=== PATIENT | female | born 1955 | race Two or more races ===

== ENCOUNTER 2018-03-18 14:39 | Emergency (ER) | payer OTHER ==
[2018-03-19 07:47] LABS: NEGATIVE OBC STREP NEG
[2018-03-19 07:48] LABS: POSITIVE OBC STREP POS
== END 2018-03-18 15:16 | disposition home or self-care (01) ==
LOC: ER 14:39
DX: J20.9 Acute bronchitis, unspecified (principal); J06.9 Acute upper respiratory infection, unspecified; K02.9 Dental caries, unspecified; E03.9 Hypothyroidism, unspecified; K21.9 Gastro-esophageal reflux disease without esophagitis; F03.90 Unspecified dementia, unspecified severity, without behavioral disturbance, psychotic disturbance, mood disturbance, and anxiety; Z88.8 Allergy status to other drugs, medicaments and biological substances
CPT/HCPCS: 87070; 87880; 99283

== ENCOUNTER 2018-05-21 18:53 | Emergency (ER) | payer OTHER ==
[~2018-05-21] VITALS: Ht 167.6 cm; Wt 75.4 kg
[~2018-05-21 18:53] MED LIST: AMOX875T PO; AZIT250T PO; BENZ100C PO; CETI10TA22 PO; FLUT9.9S NS; PRED50TA PO; VENTOLIN HFA18 GM INH
[2018-05-21] MEDS ORDERED: SODIUM PHOSPHATES 19/7GM 133 ML ENEMA. PR ONE (20:45)
--- NOTE | 2018-05-21 21:33 | PHYS DOC ---
Past Medical History Past Medical History: Dementia, GERD, Hypothyroid, Other Additional Past Medical Histor: prediabetes Past Surgical History: No Surgical History Alcohol Use: None Drug Use: None Adult General Chief Complaint Chief Complaint: CONTISPATION HPI HPI Patient is a 63 year old female who presents with constipation. Patient endorses that she has chronic history of constipation. According to her son who is in the room the patient has into multiple ERs for this problem. This episode , she states that she has not had a bowel movement for 3 weeks. She has been passing small pebble-like pieces of stool. No fever or chills. No abdominal pain. No urinary symptoms. Denies additional complaints. Review of Systems Review of Systems Constitutional: Denies fever or chills Eyes: Denies change in visual acuity HENT: Denies nasal congestion Respiratory: Denies cough or shortness of breath Cardiovascular: No additional information not addressed in HPI GI: Denies abdominal pain : Denies dysuria or hematuria Musculoskeletal: Denies back pain Integument: Denies rash Neurologic: Denies headache Endocrine: Denies polyuria All other systems were reviewed and found to be within normal limits, except as documented in this note. Current Medications Current Medications Current Medications Medications (Trade) Dose Ordered Sig/Blanquita Start Time Stop Time Status Last Admin Dose Admin Sodium Monofluorophosphate (Fleet Adult) 133 ml 1X ONCE 05/21/18 20:45 05/21/18 20:46 DC Allergies Allergies Allergies Coded Allergies Type Severity Reaction Last Updated Verified omeprazole Adverse Reaction Intermediate vomiting 03/18/18 Yes Physical Exam Physical Exam Constitutional: Well developed, well nourished, no acute distress, non-toxic appearance HENT: Normocephalic, atraumatic, bilateral external ears normal, oropharynx moist, no oral exudates Eyes: PERRLA, EOMI, conjunctiva normal Neck: Normal range of motion Cardiovascular:Heart rate regular rhythm, no murmur Lungs & Thorax: Bilateral breath sounds clear Abdomen: Bowel sounds normal, soft, nontender Skin: Warm, dry, no erythema Back: No tenderness Extremities: No tenderness, no cyanosis Neurologic: Alert and oriented X 3 Psychologic: Affect normal Current Patient Data Vital Signs Vital Signs Date Time Temp Pulse Resp B/P (MAP) Pulse Ox O2 Delivery O2 Flow Rate FiO2 05/21/18 21:45 80 148/67 (94) 97 05/21/18 21:00 Room Air 05/21/18 20:21 97.7 18 97.7 Lab Values Laboratory Tests Test 05/21/18 22:26 Urine Collection Type Unknown Urine Color Yellow Urine Clarity Clear Urine pH 5.0 Urine Specific [place] 1.010 Urine Protein Negative mg/dL (NEG-TRACE) Urine Glucose (UA) Negative mg/dL (NEG) Urine Ketones (Stick) Negative mg/dL (NEG) Urine Blood Negative (NEG) Urine Nitrite Negative (NEG) Urine Bilirubin Negative (NEG) Urine Urobilinogen Dipstick 0.2 mg/dL (0.2 mg/dL) Urine Leukocyte Esterase Negative (NEG) Urine RBC 0 /HPF (0-2) Urine WBC 1-4 /HPF (0-4) Urine Squamous Epithelial Cells Few /LPF Urine Amorphous Sediment Present /HPF Urine Bacteria 0 /HPF (0-FEW) Urine Mucus Mod /LPF EKG EKG [] Radiology/Procedures Radiology/Procedures [] Course & Med Decision Making Course & Med Decision Making Pertinent Labs and Imaging studies reviewed. (See chart for details) Patient is seen and examined. Exam of abdomen is completely benign with no tenderness, distension. Will attempt MOM enema. 21:30: No results with MOM enema. Nurse attempted disimpaction but no stool palpated in vault. KUB ordered. Will also check UA. Patient was evaluated for constipation in the ER. She had an enema but no stool was produced. KUB was completed and no significant amount of stool was seen in the colon or rectum. There was a positive bowel gas but there was no obstructive pattern. The patient's abdominal exam was completely benign. She is discharged to home with Colace and MiraLAX as a bowel regimen. Patient is advised to follow-up with her primary care doctor or return to the ER for any new or worsening symptoms. Dragon Disclaimer Dragon Disclaimer This electronic medical record was generated, in whole or in part, using a voice recognition dictation system. Departure Departure Referrals: UNKNOWN PCP NAME (PCP) Scripts Polyethylene Glycol 3350 (MIRALAX) 17 Gm Powd.pack 1 PACKET PO DAILY, #30 PACKET 3 Refills Prov: JARRED WORTHY DO 05/21/18 Docusate Sodium (DOCUSATE SODIUM) 100 Mg Capsule 1 CAP PO BID, #60 CAP Prov: JARRED WORTHY DO 05/21/18 JARRED WORTHY DO May 21, 2018 21:33
[2018-05-21 22:33] LABS: BILIRUBIN,URINE NEGATIVE (NEG); CLARITY,URINE CLEAR; COLOR,URINE YELLOW; NITRITE,URINE NEGATIVE (NEG); PROTEIN,URINE NEGATIVE (NEG-TRACE); UROBILINOGEN,URINE 0.2 mg/dL (0.2 mg/dL)
[2018-05-21 22:50] LABS: AMORPHOUS SEDIMENT,UR PRESENT /HPF; BACTERIA,URINE 0 /HPF (0-FEW); RBC,URINE 0 /HPF (0-2); SQUAMOUS EPITHELIAL CELL,UR FEW /LPF
[2018-05-21] MEDS ORDERED: DOCU100C28 PO (22:54)
[2018-05-21] MEDS ORDERED: POLY17PO29 PO (22:54)
[2018-05-21 23:17] VITALS: BP 192/82
--- NOTE | 2018-05-22 08:53 | RAD ---
EXAM: ABDOMEN 1 VIEW History: Abdominal pain, constipation COMPARISON: None available TECHNIQUE: A single AP abdominal radiograph Findings/ impression: Paucity of gas in the abdomen limits evaluation of the small bowel. Feces and gas noted in the ascending colon. The abdomen flanks appears somewhat bulged in appearance probably due to fat in the flanks or fluid. Recommend CT for further evaluation ER Physician was informed at time of dictation Electronically signed by: Ramón Batista MD (05/22/2018 8:49 AM) [facility]
== END 2018-05-21 23:50 | disposition home or self-care (01) ==
LOC: ER 18:53
DX: K59.00 Constipation, unspecified (principal); K21.9 Gastro-esophageal reflux disease without esophagitis; E03.9 Hypothyroidism, unspecified; F03.90 Unspecified dementia, unspecified severity, without behavioral disturbance, psychotic disturbance, mood disturbance, and anxiety; Z88.8 Allergy status to other drugs, medicaments and biological substances
CPT/HCPCS: 74018; 81001; 99285-25

== ENCOUNTER 2018-05-22 12:25 | Emergency (ER) | payer OTHER ==
[~2018-05-22] VITALS: Ht 152.4 cm; Wt 75.3 kg
[~2018-05-22 12:25] MED LIST changes: +DOCU100C28 PO; +POLY17PO29 PO
[2018-05-22] MEDS ORDERED: IV NORMAL SALINE 1000ML BAG 1,000 ML IV ONE (12:45)
--- NOTE | 2018-05-22 13:37 | PHYS DOC ---
Past Medical History Past Medical History: Constipation, Dementia, GERD, Hypothyroid, Other Additional Past Medical Histor: prediabetes,STOMACH PROBLEMS Past Surgical History: No Surgical History Alcohol Use: None Drug Use: None Adult General Chief Complaint Chief Complaint: ABDOMINAL PAIN HPI HPI Patient is a 63 year old female who presents with callback per radiology for CT scan of the abdomen and pelvis. Patient has a history of chronic intermittent constipation and her son, who translates for her, states that she has had an upper GI workup and was diagnosed with gastritis. He is not sure she ever had a lower GI workup but states she does get constipated often. Patient was just discharged earlier today had a KUB which showed constipation. Apparently there was a manual disimpaction was attempted in the emergency department without any real results. Radiology called at 8:30 this morning and request the patient be called to return to the emergency department for a CT: Findings/ impression: "Paucity of gas in the abdomen limits evaluation of the small bowel. Feces and gas noted in the ascending colon. The abdomen flanks appears somewhat bulged in appearance probably due to fat in the flanks or fluid. Recommend CT for further evaluation ER Physician was informed at time of dictation Electronically signed by: Ramón Batista MD (05/22/2018 8:49 AM) [facility]" Review of Systems Review of Systems Constitutional: Denies fever or chills [] Eyes: Denies change in visual acuity, redness, or eye pain [] HENT: Denies nasal congestion or sore throat [] Respiratory: Denies cough or shortness of breath [] Cardiovascular: No additional information not addressed in HPI [] GI: Denies abdominal pain, nausea, vomiting, bloody stools or diarrhea [] : Denies dysuria or hematuria [] Musculoskeletal: Denies back pain or joint pain [] Integument: Denies rash or skin lesions [] Neurologic: Denies headache, focal weakness or sensory changes [] Endocrine: Denies polyuria or polydipsia [] All other systems were reviewed and found to be within normal limits, except as documented in this note. Current Medications Current Medications Current Medications Medications (Trade) Dose Ordered Sig/Blanquita Start Time Stop Time Status Last Admin Dose Admin Info (CONTRAST GIVEN -- Rx MONITORING) 1 each PRN DAILY PRN 05/22/18 14:15 05/24/18 14:14 Iohexol (Omnipaque 300 Mg/ml) 75 ml 1X ONCE 05/22/18 14:15 05/22/18 14:16 DC 05/22/18 14:16 75 ML Sodium Chloride 1,000 ml @ 125 mls/hr 1X ONCE 05/22/18 12:45 05/22/18 20:44 05/22/18 13:31 125 MLS/HR Allergies Allergies Allergies Coded Allergies Type Severity Reaction Last Updated Verified omeprazole Adverse Reaction Intermediate vomiting 03/18/18 Yes Physical Exam Physical Exam Constitutional: Well developed, well nourished, no acute distress, non-toxic appearance. [] HENT: Normocephalic, atraumatic, bilateral external ears normal, oropharynx moist, no oral exudates, nose normal. [] Eyes: PERRLA, EOMI, conjunctiva normal, no discharge. [] Neck: Normal range of motion, no tenderness, supple, no stridor. [] Cardiovascular:Heart rate regular rhythm, no murmur [] Lungs & Thorax: Bilateral breath sounds clear to auscultation [] Abdomen: Bowel sounds normal, soft, no tenderness, no masses, no pulsatile masses. [] Skin: Warm, dry, no erythema, no rash. [] Back: No tenderness, no CVA tenderness. [] Extremities: No tenderness, no cyanosis, no clubbing, ROM intact, no edema. [] Neurologic: Alert and oriented X 3, normal motor function, normal sensory function, no focal deficits noted. [] Psychologic: Affect normal, judgement normal, mood normal. [] Current Patient Data Vital Signs Vital Signs Date Time Temp Pulse Resp B/P (MAP) Pulse Ox O2 Delivery O2 Flow Rate FiO2 05/22/18 15:08 84 15 150/77 (101) 98 Room Air 05/22/18 12:44 98.1 98.1 Lab Values Laboratory Tests Test 05/22/18 13:04 White Blood Count 6.5 x10^3/uL (4.0-11.0) Red Blood Count 4.58 x10^6/uL (3.50-5.40) Hemoglobin 14.2 g/dL (12.0-15.5) Hematocrit 42.0 % (36.0-47.0) Mean Corpuscular Volume 92 fL (79-100) Mean Corpuscular Hemoglobin 31 pg (25-35) Mean Corpuscular Hemoglobin Concent 34 g/dL (31-37) Red Cell Distribution Width 14.1 % (11.5-14.5) Platelet Count 234 x10^3/uL (140-400) Neutrophils (%) (Auto) 54 % (31-73) Lymphocytes (%) (Auto) 30 % (24-48) Monocytes (%) (Auto) 6 % (0-9) Eosinophils (%) (Auto) 9 % (0-3) H Basophils (%) (Auto) 1 % (0-3) Neutrophils # (Auto) 3.5 x10^3uL (1.8-7.7) Lymphocytes # (Auto) 1.9 x10^3/uL (1.0-4.8) Monocytes # (Auto) 0.4 x10^3/uL (0.0-1.1) Eosinophils # (Auto) 0.6 x10^3/uL (0.0-0.7) Basophils # (Auto) 0.1 x10^3/uL (0.0-0.2) Sodium Level 146 mmol/L (136-145) H Potassium Level 3.5 mmol/L (3.5-5.1) Chloride Level 109 mmol/L (98-107) H Carbon Dioxide Level 25 mmol/L (21-32) Anion Gap 12 (6-14) Blood Urea Nitrogen 3 mg/dL (7-20) L Creatinine 0.8 mg/dL (0.6-1.0) Estimated GFR (Cockcroft-Gault) 72.0 BUN/Creatinine Ratio 4 (6-20) L Glucose Level 133 mg/dL (70-99) H Calcium Level 9.3 mg/dL (8.5-10.1) Total Bilirubin 1.1 mg/dL (0.2-1.0) H Aspartate Amino Transferase (AST) 35 U/L (15-37) Alanine Aminotransferase (ALT) 42 U/L (14-59) Alkaline Phosphatase 93 U/L (46-116) Total Protein 7.3 g/dL (6.4-8.2) Albumin 3.5 g/dL (3.4-5.0) Albumin/Globulin Ratio 0.9 (1.0-1.7) L Laboratory Tests 05/22/18 13:04 Laboratory Tests 05/22/18 13:04 EKG EKG [] Radiology/Procedures Radiology/Procedures [facility] [address] [place] [address] IMAGING REPORT Signed PATIENT: ASHLEY DUGGAN ACCOUNT: [id number] : 1955 LOCATION: ER AGE: 63 SEX: F EXAM STATUS: REG ER ORD. PHYSICIAN: MIKEY LEES MD REASON: abdominal pain PROCEDURE: CT ABD PELV W/ IV CONTRST ONLY Examination: CT of the abdomen pelvis with IV contrast HISTORY: History of abdominal pain COMPARISON: None available TECHNIQUE: Axial CT images of the abdomen pelvis were performed with IV contrast. Coronal and sagittal reformats are performed. Exposure: One or more of the following individualized dose reduction techniques were utilized for this examination: 1. Automated exposure control 2. Adjustment of the mA and/or kV according to patient size 3. Use of iterative reconstruction technique FINDINGS: Minimal bibasilar lung airspace opacities likely atelectasis. No evidence of free air identified in the abdomen. There is mild decreased attenuation noted in the liver likely hepatic steatosis. The gallbladder is mildly distended. The visualized spleen, adrenals grossly appears unremarkable. The stomach is mildly distended. The visualized pancreas grossly appears unremarkable. The small bowel is nondilated. The appendix is normal. Feces and gas noted in the colon. Urinary bladder is mildly distended. The bilateral kidneys enhance symmetrically. Mild aortic atherosclerosis. No evidence of lytic bony destructive lesion. IMPRESSION: 1. No acute intra-abdominal findings. 2. Mild hepatic steatosis. Electronically signed by: Ramón Batista MD (05/22/2018 2:39 PM) [facility] DICTATED and SIGNED BY: RAMÓN BATISTA MD DATE: 05/22/18 4728 [] Course & Med Decision Making Course & Med Decision Making Pertinent Labs and Imaging studies reviewed. (See chart for details) []Patient currently has no acute complaints at this time is in no distress Dragon Disclaimer Dragon Disclaimer This electronic medical record was generated, in whole or in part, using a voice recognition dictation system. Departure Departure Impression: Primary Impression: Abdominal pain Disposition: 01 HOME, SELF-CARE Condition: STABLE Referrals: UNKNOWN PCP NAME (PCP) Additional Instructions: Follow-up with her primary care on Thursday for further evaluation and management possible GI consult for a lower GI series MIKEY LEES MD May 22, 2018 13:37
[2018-05-22 14:10] LABS: CALCIUM 9.3 mg/dL (8.5-10.1); CREATININE 0.8 mg/dL (0.6-1.0); POTASSIUM 3.5 mmol/L (3.5-5.1)
[2018-05-22] MEDS ORDERED: CONTRAST GIVEN. MC PRN (14:15)
[2018-05-22] MEDS ORDERED: IOHEXOL 300 MG/ML 100ML VIAL. IV ONE (14:15)
[2018-05-22 14:16] LABS: ALBUMIN 3.5 g/dL (3.4-5.0); ALBUMIN/GLOBULIN RATIO 0.9 (1.0-1.7); TOTAL BILIRUBIN 1.1 mg/dL (0.2-1.0); TOTAL PROTEIN 7.3 g/dL (6.4-8.2)
--- NOTE | 2018-05-22 14:43 | RAD ---
Examination: CT of the abdomen pelvis with IV contrast HISTORY: History of abdominal pain COMPARISON: None available TECHNIQUE: Axial CT images of the abdomen pelvis were performed with IV contrast. Coronal and sagittal reformats are performed. Exposure: One or more of the following individualized dose reduction techniques were utilized for this examination: 1. Automated exposure control 2. Adjustment of the mA and/or kV according to patient size 3. Use of iterative reconstruction technique FINDINGS: Minimal bibasilar lung airspace opacities likely atelectasis. No evidence of free air identified in the abdomen. There is mild decreased attenuation noted in the liver likely hepatic steatosis. The gallbladder is mildly distended. The visualized spleen, adrenals grossly appears unremarkable. The stomach is mildly distended. The visualized pancreas grossly appears unremarkable. The small bowel is nondilated. The appendix is normal. Feces and gas noted in the colon. Urinary bladder is mildly distended. The bilateral kidneys enhance symmetrically. Mild aortic atherosclerosis. No evidence of lytic bony destructive lesion. IMPRESSION: 1. No acute intra-abdominal findings. 2. Mild hepatic steatosis. Electronically signed by: Ramón Batista MD (05/22/2018 2:39 PM) [facility]
[2018-05-22 15:12] LABS: BASO # 0.1 x10^3/uL (0.0-0.2); BASO % 1 % (0-3); EOS # 0.6 x10^3/uL (0.0-0.7); EOS % 9 % (0-3); HEMOGLOBIN 14.2 g/dL (12.0-15.5); LYMPH # 1.9 x10^3/uL (1.0-4.8); LYMPH % 30 % (24-48); MEAN CORPUSCULAR HEMOGLOBIN 31 pg (25-35); MEAN CORPUSCULAR HGB CONC 34 g/dL (31-37); MEAN CORPUSCULAR VOLUME 92 fL (79-100); MONO # 0.4 x10^3/uL (0.0-1.1); MONO % 6 % (0-9); NEUT # 3.5 x10^3uL (1.8-7.7); NEUT % 54 % (31-73); PLATELET COUNT 234 x10^3/uL (140-400); RED BLOOD COUNT 4.58 x10^6/uL (3.50-5.40); RED CELL DISTRIBUTION WIDTH 14.1 % (11.5-14.5); WHITE BLOOD COUNT 6.5 x10^3/uL (4.0-11.0)
[2018-05-22 15:56] VITALS: BP 146/70
== END 2018-05-22 16:29 | disposition home or self-care (01) ==
LOC: ER 12:25
DX: K59.00 Constipation, unspecified (principal); K29.70 Gastritis, unspecified, without bleeding; K76.0 Fatty (change of) liver, not elsewhere classified; K21.9 Gastro-esophageal reflux disease without esophagitis; E03.9 Hypothyroidism, unspecified; F03.90 Unspecified dementia, unspecified severity, without behavioral disturbance, psychotic disturbance, mood disturbance, and anxiety; Z88.8 Allergy status to other drugs, medicaments and biological substances
CPT/HCPCS: 36415; 74177; 80053; 85025; 96360; 96361; 99285; J7030; Q9967

== ENCOUNTER → 2018-06-10 | Outpatient (CLI) | payer MEDICAID, OTHER ==
[2018-05-22 15:56] VITALS: BP 146/70
--- NOTE | 2018-06-10 12:54 | RAD ---
DATE: 06/10/2018 EXAM: DIGITAL SCREEN BILAT W/CAD HISTORY: Routine screening COMPARISON: Baseline study This study was interpreted with the benefit of Computerized Aided Detection (CAD). Breast Density: HETERO The breast parenchyma is heterogenously dense, which could reduce sensitivity of mammography. Breast parenchyma level C. FINDINGS: A small benign-appearing lymph node type density is projected over the axillary tail region of the right breast. No suspicious breast densities are seen. There are scattered benign type calcifications. A cluster of 5 microcalcifications is noted just medial and inferior to the midline of the left breast. These are rounded and fairly smooth and have a benign appearance. IMPRESSION: Probably benign left breast microcalcifications. In the absence of prior mammograms to establish stability, mammographic surveillance consisting of follow-up left mammograms in 6 months and bilateral mammography at one year is suggested. BI-RADS CATEGORY: 3 PROBABLY BENIGN FINDING(S)-SHORT INTERVAL FOLLOW-UP SUGGESTED RECOMMENDED FOLLOW-UP: 6M 6 MONTH FOLLOW-UP PQRS compliance statement: Patient information was entered into a reminder system with a target due date for the next mammogram. Mammography is a sensitive method for finding small breast cancers, but it does not detect them all and is not a substitute for careful clinical examination. A negative mammogram does not negate a clinically suspicious finding and should not result in delay in biopsying a clinically suspicious abnormality. "Our facility is accredited by the [employer] Mammography Program."
== END | disposition home or self-care (01) ==
LOC: MAMMO 09:49
DX: Z12.31 Encounter for screening mammogram for malignant neoplasm of breast (principal)
CPT/HCPCS: 77067

== ENCOUNTER 2018-11-05 21:00 | Emergency (ER) | payer OTHER ==
[~2018-11-05] VITALS: Ht 157.5 cm; Wt 74.8 kg
[2018-11-05 21:27] VITALS: BP 146/78
--- NOTE | 2018-11-05 22:35 | RAD ---
EXAM: CT Head without IV contrast CLINICAL HISTORY: LEFT EAR ACHE, PAIN, R/O LEFT MASTOIDITIS COMPARISON: None. TECHNIQUE: Routine CT of the head without contrast. Soft tissues and bone windows were reviewed. PQRS compliance statement - One or more of the following individualized dose reduction techniques were utilized for this study: 1. Automated exposure control 2. Adjustment of the mA and/or kV according to patient size 3. Use of iterative reconstruction technique FINDINGS: There is no evidence of hemorrhage, mass or extra-axial fluid collection. Lockett-white differentiation is maintained with no evidence of edema. There is no mass effect or shift of the intracranial structures. The ventricles, basilar cisterns and cortical sulci are normal in size and configuration for the patients stated age. The cerebellum and brainstem are unremarkable. The calvarium demonstrates no evidence of fracture or focal lesion. Mastoid air cells are clear. Diffuse opacification of the maxillary sinuses, ethmoid air cells and right frontal sinus as well as patchy opacification of the sphenoid sinuses likely sinusitis. The visualized portions of the orbits are normal. IMPRESSION: 1. No evidence for acute intracranial process. 2. Mastoid air cells are clear. 3. Diffuse opacification of the paranasal sinuses may be seen with sinusitis. Electronically signed by: Vijay Cagle MD (11/05/2018 10:32 PM) [facility]
[2018-11-05] MEDS ORDERED: AMOX1TAB61 PO (22:40)
--- NOTE | 2018-11-05 22:40 | PHYS DOC ---
Past Medical History Past Medical History: Constipation, Dementia, GERD, Hypothyroid, Other Additional Past Medical Histor: prediabetes,STOMACH PROBLEMS Past Surgical History: No Surgical History Alcohol Use: None Drug Use: None Adult General Chief Complaint Chief Complaint: EARACHE/EAR PAIN [facility] HPI Patient is a 63 year old male, accompanied by his son, who presents to the emergency room with complaints of left ear pain and cold symptoms for the last two days. patient reports nasal congestion, runny nose with clear drainage, and dry cough. He denies any nausea, vomiting, diarrhea, fever, vision changes, or sore throat. Currently he reports his pain is 8/10 on the pain scale, he took T ylenol for relief of the pain at home with no improvement. he denies any drainage, or bleeding from his left ear, patient reports that the pain is not inside of his ear it is just behind his ear. Review of Systems Review of Systems Constitutional: Denies fever or chills [] Eyes: Denies change in visual acuity, redness, or eye pain [] HENT: See HPI Respiratory: Denies shortness of breath [] Cardiovascular: No additional information not addressed in HPI [] GI: Denies abdominal pain, nausea, vomiting, or diarrhea [] Musculoskeletal: Denies back pain or joint pain [] Integument: Denies rash or skin lesions [] Neurologic: Denies headache, focal weakness or sensory changes [] Complete systems were reviewed and found to be within normal limits, except as documented in this note. Allergies Allergies Allergies Coded Allergies Type Severity Reaction Last Updated Verified omeprazole Adverse Reaction Intermediate vomiting 03/18/18 Yes Physical Exam Physical Exam Constitutional: Well developed, well nourished, no acute distress, non-toxic appearance. [] HENT: Normocephalic, atraumatic, bilateral external ears normal, bilateral TMs normal, oropharynx moist, cobblestone parents posterior pharynx, no oral exudates, nose normal; left mastoid process tenderness to palpation, no erythema, no swelling[] Eyes: conjunctiva normal, no discharge. [] Neck: Normal range of motion, no tenderness, supple, no stridor. [] Cardiovascular:Heart rate regular rhythm, Lungs & Thorax: Bilateral breath sounds clear to auscultation [] Skin: Warm, dry, no erythema, no rash. [] Extremities:No cyanosis, ROM intact, no edema, no deformities. Neurologic: Alert and oriented X 3, no focal deficits noted. [] Psychologic: Affect normal, judgement normal, mood normal. [] Current Patient Data Vital Signs EKG EKG [] Radiology/Procedures Radiology/Procedures PROCEDURE: CT HEAD WO CONTRAST EXAM: CT Head without IV contrast CLINICAL HISTORY: LEFT EAR ACHE, PAIN, R/O LEFT MASTOIDITIS COMPARISON: None. TECHNIQUE: Routine CT of the head without contrast. Soft tissues and bone windows were reviewed. PQRS compliance statement - One or more of the following individualized dose reduction techniques were utilized for this study: 1. Automated exposure control 2. Adjustment of the mA and/or kV according to patient size 3. Use of iterative reconstruction technique FINDINGS: There is no evidence of hemorrhage, mass or extra-axial fluid collection. Lockett-white differentiation is maintained with no evidence of edema. There is no mass effect or shift of the intracranial structures. The ventricles, basilar cisterns and cortical sulci are normal in size and configuration for the patients stated age. The cerebellum and brainstem are unremarkable. The calvarium demonstrates no evidence of fracture or focal lesion. Mastoid air cells are clear. Diffuse opacification of the maxillary sinuses, ethmoid air cells and right frontal sinus as well as patchy opacification of the sphenoid sinuses likely sinusitis. The visualized portions of the orbits are normal. IMPRESSION: 1. No evidence for acute intracranial process. 2. Mastoid air cells are clear. 3. Diffuse opacification of the paranasal sinuses may be seen with sinusitis.[] Course & Med Decision Making Course & Med Decision Making Pertinent Labs and Imaging studies reviewed. (See chart for details) [] Dragon Disclaimer Dragon Disclaimer This electronic medical record was generated, in whole or in part, using a voice recognition dictation system. Departure Departure Impression: Primary Impression: Acute sinusitis Disposition: 01 HOME, SELF-CARE Condition: STABLE Referrals: UNKNOWN PCP NAME (PCP) Patient Instructions: Sinusitis, [id number] Additional Instructions: Fill the prescription and take as directed. Tylenol or ibuprofen as needed for pain. Return to the ER if symptoms worsen. Scripts Amoxicillin/Potassium Clav (AUGMENTIN 875-125 TABLET) 1 Each Tablet 1 TAB PO BID, #14 TAB Prov: LAURYN MELTON [employer]ICE ECONOMIST 11/05/18 Problem Qualifiers Primary Impression: Acute sinusitis Sinusitis location: unspecified location Recurrence: not specified as recurrent Qualified Codes: J01.90 - Acute sinusitis, unspecified LAURYN MELTON PRICE ECONOMIST Nov 05, 2018 22:40
== END 2018-11-05 22:50 | disposition home or self-care (01) ==
LOC: ER 21:00
DX: J01.90 Acute sinusitis, unspecified (principal); K21.9 Gastro-esophageal reflux disease without esophagitis; E03.9 Hypothyroidism, unspecified; F03.90 Unspecified dementia, unspecified severity, without behavioral disturbance, psychotic disturbance, mood disturbance, and anxiety; Z88.8 Allergy status to other drugs, medicaments and biological substances
CPT/HCPCS: 70450; 99284-25

== ENCOUNTER 2019-05-19 11:12 | Emergency (ER) | payer OTHER ==
[~2019-05-19] VITALS: Ht 167.6 cm; Wt 74.8 kg
[~2019-05-19 11:12] MED LIST changes: +AMOX1TAB61 PO; +DICY20TA3 PO; +FAMO-63 PO; +SUCR1TAB35 PO
[2019-05-19] MEDS ORDERED: LIDO:MAALOX 1:1 20 ML SINGLE DOSE. SWSW ONE (11:45)
--- NOTE | 2019-05-19 12:17 | PHYS DOC ---
Past Medical History Past Medical History: Constipation, Dementia, GERD, Hypothyroid, Other Additional Past Medical Histor: prediabetes,STOMACH PROBLEMS Past Surgical History: Cholecystectomy Alcohol Use: None Drug Use: None Adult General Chief Complaint Chief Complaint: COUGH HPI HPI Patient is a 64 year old female with history of dementia, hypothyroidism, who presents to the ED today complaining of cough and a sore throat that began one week. Patient denies any fever. Denies any shortness of breath. Patient's son is interpreting for their pamunkey language Review of Systems Review of Systems Constitutional: Denies fever or chills [] Eyes: Denies change in visual acuity, redness, or eye pain [] HENT: Reports sore throat. Denies nasal congestion Respiratory: Reports cough. Shortness of breath [] Cardiovascular: No additional information not addressed in HPI [] GI: Denies abdominal pain, nausea, vomiting, bloody stools or diarrhea [] : Denies dysuria or hematuria [] Musculoskeletal: Denies back pain or joint pain [] Integument: Denies rash or skin lesions [] Neurologic: Denies headache, focal weakness or sensory changes [] All other systems were reviewed and found to be within normal limits, except as documented in this note. Current Medications Current Medications Current Medications Medications (Trade) Dose Ordered Sig/Blanquita Start Time Stop Time Status Last Admin Dose Admin Multi-Ingredient Mouthwash/Gargle (Gi Cocktail) 20 ml 1X ONCE 05/19/19 11:45 05/19/19 11:46 DC 05/19/19 12:25 20 ML Allergies Allergies Allergies Coded Allergies Type Severity Reaction Last Updated Verified omeprazole Adverse Reaction Intermediate vomiting 03/18/18 Yes Physical Exam Physical Exam Constitutional: Well developed, well nourished, no acute distress, non-toxic appearance. [] HENT: Normocephalic, atraumatic, bilateral external ears normal, oropharynx moist, no oral exudates, nose normal. [] Eyes: PERRLA, EOMI, conjunctiva normal, no discharge. [] Neck: Normal range of motion, no tenderness, supple, no stridor. [] Cardiovascular:Heart rate regular rhythm, no murmur [] Lungs & Thorax: Bilateral breath sounds clear to auscultation [] Abdomen: Bowel sounds normal, soft, no tenderness, no masses, no pulsatile masses. [] Skin: Warm, dry, no erythema, no rash. [] Back: No tenderness, no CVA tenderness. [] Extremities: No tenderness, no cyanosis, no clubbing, ROM intact, no edema. [] Neurologic: Alert and oriented X 3, normal motor function, normal sensory function, no focal deficits noted. [] Psychologic: Affect normal, judgement normal, mood normal. [] Current Patient Data Vital Signs Vital Signs Date Time Temp Pulse Resp B/P (MAP) Pulse Ox O2 Delivery O2 Flow Rate FiO2 05/19/19 11:52 97.8 76 16 136/64 (88) 94 Room Air 97.8 Lab Values Laboratory Tests Test 05/19/19 12:00 Group A Streptococcus Rapid Negative (NEGATIVE) EKG EKG [address] Marielle samuel rhythm HR 82 no STEMI[] Radiology/Procedures Radiology/Procedures []PROCEDURE: CHEST PA & LATERAL PA and lateral views of the chest. Comparison: 03/26/2019. Indication: Cough Findings: The heart size is at the upper limits of normal but stable. No pneumothorax or effusion. No air space or interstitial disease. The bony structures are intact. Impression: 1. No acute cardiopulmonary process. DICTATED and SIGNED BY: MARIANA ZHANG MD DATE: 05/19/19 1253 Course & Med Decision Making Course & Med Decision Making Pertinent Labs and Imaging studies reviewed. (See chart for details) This is a 64-year-old female patient presented to the ED today with cough and sore throat that began one week ago. Patient be treated for bronchitis, discharged to home, follow-up with primary care doctor in 1-2 weeks. Dragon Disclaimer Dragon Disclaimer This electronic medical record was generated, in whole or in part, using a voice recognition dictation system. Departure Departure Impression: Primary Impression: Acute bronchitis Additional Impression: Acute pharyngitis Disposition: 01 HOME, SELF-CARE Condition: STABLE Patient Instructions: Acute Bronchitis, Viral and Bacterial Pharyngitis Additional Instructions: You were evaluated in the emergency room for acute bronchitis and pharyngitis. Take the prescribed medications as ordered until completed. Follow-up with your doctor in one week. Scripts Doxycycline Monohydrate (DOXYCYCLINE MONOHYDRATE) 100 Mg Capsule 1 CAP PO BID, #14 CAP Prov: TRENTON WALTERS [employer] AID INSTRUCTOR 05/19/19 Benzonatate (TESSALON PERLE) 100 Mg Capsule 1 CAP PO TID, #30 CAP Prov: TRENTON WALTERS APRN 05/19/19 Albuterol Sulfate (VENTOLIN HFA INHALER) 18 Gm Hfa.aer.ad 2 PUFF INH Q4HRS for FOR ASTHMA, #1 INHALER 0 Refills Prov: TRENTON WALTERS TERESA 05/19/19 Prednisone (PREDNISONE) 50 Mg Tablet 1 TAB PO DAILY, #5 TAB Prov: TRENTON WALTERS APRN 05/19/19 Problem Qualifiers Primary Impression: Acute bronchitis Bronchitis organism: unspecified organism Qualified Codes: J20.9 - Acute bronchitis, unspecified Additional Impression: Acute pharyngitis Pharyngitis/tonsillitis etiology: unspecified etiology Qualified Codes: J02.9 - Acute pharyngitis, unspecified TRENTON WALTERS APRN May 19, 2019 12:17
--- NOTE | 2019-05-19 15:08 | RAD ---
PA and lateral views of the chest. Comparison: 03/26/2019. Indication: Cough Findings: The heart size is at the upper limits of normal but stable. No pneumothorax or effusion. No air space or interstitial disease. The bony structures are intact. Impression: 1. No acute cardiopulmonary process. MTDD
[2019-05-19] MEDS ORDERED: PRED50TA PO (15:47)
[2019-05-19] MEDS ORDERED: VENTOLIN HFA18 GM INH (15:47)
[2019-05-19] MEDS ORDERED: BENZ100C PO (15:47)
[2019-05-19] MEDS ORDERED: DOXY100C14 PO (15:47)
[2019-05-19 15:52] VITALS: BP 143/109
--- NOTE | 2019-05-19 16:05 | EKG ---
[facility] [address] [place] [address] Test Date: 2019-05-19 Test Time: 11:35:47 Pat Name: ASHLEY DUGGAN Department: Room: Gender: F [employer]: : 1955 Requested By: TRENTON WALTERS Order Number: [id number] Reading MD: William Macias MD Measurements Intervals [place] Rate: 81 P: 49 WV: 166 QRS: 16 QRSD: 90 T: 41 QT: 388 QTc: 456 Interpretive Statements SINUS RHYTHM Electronically Signed On 05-30-2019 14:36:17 CDT by William Macias MD
== END 2019-05-19 16:01 | disposition home or self-care (01) ==
LOC: ER 11:12
DX: J20.9 Acute bronchitis, unspecified (principal); J02.9 Acute pharyngitis, unspecified; F03.90 Unspecified dementia, unspecified severity, without behavioral disturbance, psychotic disturbance, mood disturbance, and anxiety; K21.9 Gastro-esophageal reflux disease without esophagitis; E03.9 Hypothyroidism, unspecified; Z88.8 Allergy status to other drugs, medicaments and biological substances
CPT/HCPCS: 71046; 87070; 87880; 93005; 99285-25

== ENCOUNTER 2019-05-26 10:19 | Emergency (ER) | payer OTHER ==
[~2019-05-26] VITALS: Ht 172.7 cm; Wt 74.8 kg
[~2019-05-26 10:19] MED LIST changes: +DOXY100C14 PO
--- NOTE | 2019-05-26 12:42 | PHYS DOC ---
Past Medical History Past Medical History: Constipation, Dementia, GERD, Hypothyroid, Other Additional Past Medical Histor: prediabetes,STOMACH PROBLEMS Past Surgical History: Cholecystectomy Alcohol Use: None Drug Use: None Adult General Chief Complaint Chief Complaint: VAGINAL PROBLEM HPI HPI Patient is a 64 year old female that presents with multiple complaints. The patient states been having vaginal burning, vaginal itching, rectal itching, back pain, and abdominal pain for 4 days. Patient rates her pain as 9 out of 10 in severity and states is burning and itching. Review of Systems Review of Systems Constitutional: Denies fever or chills [] Eyes: Denies change in visual acuity, redness, or eye pain [] HENT: Denies nasal congestion or sore throat [] Respiratory: Denies cough or shortness of breath [] Cardiovascular: No additional information not addressed in HPI [] GI: Reports abdominal pain, Denies nausea, vomiting, bloody stools or diarrhea [] : Reports dysuria, itching, and discharge. Musculoskeletal: Reports back pain. Integument: Denies rash or skin lesions [] Neurologic: Denies headache, focal weakness or sensory changes [] Endocrine: Denies polyuria or polydipsia [] Complete systems were reviewed and found to be within normal limits, except as documented in this note. Current Medications Current Medications Current Medications Medications (Trade) Dose Ordered Sig/Blanquita Start Time Stop Time Status Last Admin Dose Admin Ceftriaxone Sodium (Rocephin) 1 gm 1X STAT 05/26/19 14:15 05/26/19 14:17 DC 05/26/19 15:02 1 GM Info (CONTRAST GIVEN -- Rx MONITORING) 1 each PRN DAILY PRN 05/26/19 14:00 05/28/19 13:59 Iohexol (Omnipaque 300 Mg/ml) 75 ml 1X ONCE 05/26/19 14:00 05/26/19 14:01 DC 05/26/19 14:00 75 ML Sodium Chloride 500 ml @ 500 mls/hr 1X ONCE 05/26/19 13:00 05/26/19 13:59 DC 05/26/19 13:28 500 MLS/HR Allergies Allergies Allergies Coded Allergies Type Severity Reaction Last Updated Verified No Known Medication Allergies Allergy Unknown 05/26/19 Yes omeprazole Adverse Reaction Intermediate vomiting 03/18/18 Yes Physical Exam Physical Exam Constitutional: Well developed, well nourished, no acute distress, non-toxic appearance. [] HENT: Normocephalic, atraumatic, bilateral external ears normal, oropharynx moist, no oral exudates, nose normal. [] Eyes: PERRLA, EOMI, conjunctiva normal, no discharge. [] Neck: Normal range of motion, no tenderness, supple, no stridor. [] Cardiovascular:Heart rate regular rhythm, no murmur [] Lungs & Thorax: Bilateral breath sounds clear to auscultation [] Abdomen: Bowel sounds normal, soft, diffuse tenderness, no masses, no pulsatile masses. [] Skin: Warm, dry, no erythema, no rash. [] Back: lumbar tenderness, no CVA tenderness. [] Extremities: No tenderness, no cyanosis, no clubbing, ROM intact, no edema. [] Neurologic: Alert and oriented X 3, normal motor function, normal sensory function, no focal deficits noted. [] Psychologic: Affect normal, judgement normal, mood normal. [] Pelvic Exam: External exam is normal and without rash, No CMT, OS is closed, white discharge, uterus NTTP, No adnexal masses or tenderness noted Current Patient Data Vital Signs Vital Signs Date Time Temp Pulse Resp B/P (MAP) Pulse Ox O2 Delivery O2 Flow Rate FiO2 05/26/19 11:18 98.1 87 16 170/89 (116) 99 Room Air 98.1 Lab Values Laboratory Tests Test 05/26/19 11:20 05/26/19 13:20 Urine Collection Type Unknown Urine Color Yellow Urine Clarity Clear Urine pH 5.5 Urine Specific Mica 1.010 Urine Protein Negative mg/dL (NEG-TRACE) Urine Glucose (UA) Negative mg/dL (NEG) Urine Ketones (Stick) Negative mg/dL (NEG) Urine Blood Negative (NEG) Urine Nitrite Negative (NEG) Urine Bilirubin Negative (NEG) Urine Urobilinogen Dipstick 0.2 mg/dL (0.2 mg/dL) Urine Leukocyte Esterase Moderate (NEG) Urine RBC 0 /HPF (0-2) Urine WBC 20-40 /HPF (0-4) Urine Squamous Epithelial Cells Few /LPF Urine Bacteria 0 /HPF (0-FEW) White Blood Count 11.4 x10^3/uL (4.0-11.0) H Red Blood Count 4.40 x10^6/uL (3.50-5.40) Hemoglobin 13.2 g/dL (12.0-15.5) Hematocrit 39.2 % (36.0-47.0) Mean Corpuscular Volume 89 fL (79-100) Mean Corpuscular Hemoglobin 30 pg (25-35) Mean Corpuscular Hemoglobin Concent 34 g/dL (31-37) Red Cell Distribution Width 14.0 % (11.5-14.5) Platelet Count 213 x10^3/uL (140-400) Neutrophils (%) (Auto) 65 % (31-73) Lymphocytes (%) (Auto) 26 % (24-48) Monocytes (%) (Auto) 5 % (0-9) Eosinophils (%) (Auto) 4 % (0-3) H Basophils (%) (Auto) 1 % (0-3) Neutrophils # (Auto) 7.3 x10^3/uL (1.8-7.7) Lymphocytes # (Auto) 2.9 x10^3/uL (1.0-4.8) Monocytes # (Auto) 0.6 x10^3/uL (0.0-1.1) Eosinophils # (Auto) 0.4 x10^3/uL (0.0-0.7) Basophils # (Auto) 0.1 x10^3/uL (0.0-0.2) Sodium Level 146 mmol/L (136-145) H Potassium Level 3.9 mmol/L (3.5-5.1) Chloride Level 109 mmol/L (98-107) H Carbon Dioxide Level 33 mmol/L (21-32) H Anion Gap 4 (6-14) L Blood Urea Nitrogen 11 mg/dL (7-20) Creatinine 0.8 mg/dL (0.6-1.0) Estimated GFR (Cockcroft-Gault) 71.8 BUN/Creatinine Ratio 14 (6-20) Glucose Level 112 mg/dL (70-99) H Calcium Level 8.8 mg/dL (8.5-10.1) Total Bilirubin 0.7 mg/dL (0.2-1.0) Aspartate Amino Transferase (AST) 19 U/L (15-37) Alanine Aminotransferase (ALT) 28 U/L (14-59) Alkaline Phosphatase 92 U/L (46-116) Total Protein 6.7 g/dL (6.4-8.2) Albumin 3.2 g/dL (3.4-5.0) L Albumin/Globulin Ratio 0.9 (1.0-1.7) L Lipase 105 U/L (73-393) Laboratory Tests 05/26/19 13:20 Laboratory Tests 05/26/19 13:20 Microbiology 05/26/19 Wet Prep - Final, Complete Laboratory Tests Test 05/26/19 11:20 05/26/19 13:20 Urine Collection Type Unknown Urine Color Yellow Urine Clarity Clear Urine pH 5.5 Urine Specific Mica 1.010 Urine Protein Negative mg/dL (NEG-TRACE) Urine Glucose (UA) Negative mg/dL (NEG) Urine Ketones (Stick) Negative mg/dL (NEG) Urine Blood Negative (NEG) Urine Nitrite Negative (NEG) Urine Bilirubin Negative (NEG) Urine Urobilinogen Dipstick 0.2 mg/dL (0.2 mg/dL) Urine Leukocyte Esterase Moderate (NEG) Urine RBC 0 /HPF (0-2) Urine WBC 20-40 /HPF (0-4) Urine Squamous Epithelial Cells Few /LPF Urine Bacteria 0 /HPF (0-FEW) White Blood Count 11.4 x10^3/uL (4.0-11.0) H Red Blood Count 4.40 x10^6/uL (3.50-5.40) Hemoglobin 13.2 g/dL (12.0-15.5) Hematocrit 39.2 % (36.0-47.0) Mean Corpuscular Volume 89 fL (79-100) Mean Corpuscular Hemoglobin 30 pg (25-35) Mean Corpuscular Hemoglobin Concent 34 g/dL (31-37) Red Cell Distribution Width 14.0 % (11.5-14.5) Platelet Count 213 x10^3/uL (140-400) Neutrophils (%) (Auto) 65 % (31-73) Lymphocytes (%) (Auto) 26 % (24-48) Monocytes (%) (Auto) 5 % (0-9) Eosinophils (%) (Auto) 4 % (0-3) H Basophils (%) (Auto) 1 % (0-3) Neutrophils # (Auto) 7.3 x10^3/uL (1.8-7.7) Lymphocytes # (Auto) 2.9 x10^3/uL (1.0-4.8) Monocytes # (Auto) 0.6 x10^3/uL (0.0-1.1) Eosinophils # (Auto) 0.4 x10^3/uL (0.0-0.7) Basophils # (Auto) 0.1 x10^3/uL (0.0-0.2) Sodium Level 146 mmol/L (136-145) H Potassium Level 3.9 mmol/L (3.5-5.1) Chloride Level 109 mmol/L (98-107) H Carbon Dioxide Level 33 mmol/L (21-32) H Anion Gap 4 (6-14) L Blood Urea Nitrogen 11 mg/dL (7-20) Creatinine 0.8 mg/dL (0.6-1.0) Estimated GFR (Cockcroft-Gault) 71.8 BUN/Creatinine Ratio 14 (6-20) Glucose Level 112 mg/dL (70-99) H Calcium Level 8.8 mg/dL (8.5-10.1) Total Bilirubin 0.7 mg/dL (0.2-1.0) Aspartate Amino Transferase (AST) 19 U/L (15-37) Alanine Aminotransferase (ALT) 28 U/L (14-59) Alkaline Phosphatase 92 U/L (46-116) Total Protein 6.7 g/dL (6.4-8.2) Albumin 3.2 g/dL (3.4-5.0) L Albumin/Globulin Ratio 0.9 (1.0-1.7) L Lipase 105 U/L (73-393) Laboratory Tests 05/26/19 13:20 Laboratory Tests 05/26/19 13:20 Microbiology 05/26/19 Wet Prep - Final, Complete EKG EKG [] Radiology/Procedures Radiology/Procedures [facility] [address] [facility] [place], [place] [id number] IMAGING REPORT Signed PATIENT: ASHLEY DUGGAN ACCOUNT: [id number] : 1955 LOCATION: ER AGE: 64 SEX: F EXAM STATUS: REG ER ORD. PHYSICIAN: JACQUELINE CARRANZA APRN REASON: fluid in endometrial canal PROCEDURE: PELVIS W/TV PELVIS W/TV History: Fluid within the endometrial canal on CT. Comparison: CT May 26, 2019. Technique: Grayscale and color Doppler imaging of the pelvis was performed using transabdominal and transvaginal technique. Findings: The uterus measures 4.9 x 3.9 x 2.9 cm in length. Fluid within the endometrial canal measures up to 0.9 cm. Bilateral ovaries not identified due to overlying bowel gas and positioning. IMPRESSION: 1. Nonspecific fluid within the endometrial canal. Recommend further clinical evaluation. 2. Bilateral ovaries not identified. Electronically signed by: Bacilio Barnhart DO (05/26/2019 3:32 PM) [id number] DICTATED and SIGNED BY: BACILIO BARNHART DO DATE: 05/26/19 153 [][facility] [address] [place] [address] IMAGING REPORT Signed PATIENT: ASHLEY DUGGAN ACCOUNT: [id number] : 1955 LOCATION: ER AGE: 64 SEX: F EXAM STATUS: REG ER ORD. PHYSICIAN: JACQUELINE CARRANZA APRN REASON: abd pain PROCEDURE: CT ABD PELV W/ IV CONTRST ONLY Axial CT of the abdomen and pelvis were obtained after the administration of 70 cc Isovue 370. Oral contrast was also administered. Coronal and sagittal reformats are also available. Exposure: One or more of the following individualized dose reduction techniques were utilized for this examination: 1. Automated exposure control 2. Adjustment of the mA and/or kV according to patient size 3. Use of iterative reconstruction technique Indication: Abdominal pain. Comparison: 03/26/2019. Findings: Lung bases are clear. The heart is unenlarged. The apex of the dome of diaphragm is not identified. Patient status post cholecystectomy. The visualized liver parenchyma, spleen, adrenals kidneys and pancreas are unremarkable. The stomach, small and large bowel are nondistended. No evidence pathologic wall thickening. Appendix is visualized and is unremarkable in appearance. There is approximately 1.4 cm of fluid within the endometrial canal. The appendix is visualized and is unremarkable in appearance. There is a focal area of inflammation along the sigmoid colon seen best on axial series image 64. Bladder is distended. Bony structures are otherwise unremarkable. Abdominal aorta is nonaneurysmal. Portal, superior mesenteric and splenic veins are unremarkable. IMPRESSION: 1. Small amount of fluid in the endometrial canal. Given the patient's age this is not within normal limits. Consider transabdominal and transvaginal ultrasound for further evaluation. 2. Small focal area of inflammation along the sigmoid colon may represent small area of diverticulitis or mesenteric infarct. Correlate with location and severity of pain. Electronically signed by: Vince Glass MD (05/26/2019 2:41 PM) [id number] DICTATED and SIGNED BY: VINCE GLASS MD DATE: 05/26/19 1444 Course & Med Decision Making Course & Med Decision Making Pertinent Labs and Imaging studies reviewed. (See chart for details) Will get UA, labs, wet prep, GC/Chlam, and CT. UA shows moderate leukocytes and 20-40 WBC. Will treat with Rocephin IV 1 Gm and then d/c home on Keflex Wet prep suggests bacterial vaginosis will treat with Flagyl 500 mg BID x 7 days. WBC is 11.4 likely related to UTI, and Bacterial Vaginosis. The rest of the lab work is unremarkable clinically. Pending GC/Chlamydia Imaging suggests possible diverticulitis, also suggest nonspecific free fluids in endometrial canal and recommends ultrasound. Will get ultrasound as recommended. Ultrasound shows Nonspecific fluid within the endometrial canal. Recommend further clinical evaluation. Will refer to OB for further evaluation. Dragon Disclaimer Dragon Disclaimer This electronic medical record was generated, in whole or in part, using a voice recognition dictation system. Departure Departure Impression: Primary Impression: BV (bacterial vaginosis) Additional Impressions: Urinary tract infection Diverticulitis Disposition: HOME, SELF-CARE Condition: STABLE Referrals: UNKNOWN PCP NAME (PCP) HOLLY COFFEY Jr, MD Patient Instructions: Bacterial Vaginosis, Diverticulitis, Urinary Tract Infection Additional Instructions: Thank you for visiting [facility]. We appreciate you trusting us with your care. If any additional problems come up don't hesitate to return to visit us. Please follow up with your primary care provider so they can plan additional care if needed and know about the problem that you had. If symptoms worsen come back to the Emergency Department. Any concerning symptoms that start such as chest pain, shortness of air, weakness or numbness on one side of the body, running high fevers or any other concerning symptoms return to the ER. You have been prescribed an antibiotic today to help fight your infection. Please take all of the antibiotic as directed. If after 48 hours the infection is not improving, please return for more care. If the infection worsens, return to ER for additional care. Please do not drink alcohol on Flagyl. Please follow up with OB about nonspecific fluid in endometrial canal. Scripts Ciprofloxacin Hcl (CIPRO) 500 Mg Tablet 1 TAB PO BID for 7 Days, #14 TAB Prov: JACQUELINE CARRANZA APRN 05/26/19 Metronidazole (FLAGYL) 500 Mg Tablet 500 MG PO TID for 7 Days, #21 TAB Prov: JACQUELINE CARRANZA APRN 05/26/19 Cephalexin (KEFLEX) 500 Mg Capsule 1 CAP PO BID for 7 Days, #14 CAP Prov: JACQUELINE CARRANZA APRN 05/26/19 Problem Qualifiers Additional Impressions: Urinary tract infection Urinary tract infection type: acute cystitis Hematuria presence: without hematuria Qualified Codes: N30.00 - Acute cystitis without hematuria JACQUELINE CARRANZA APRN May 26, 2019 12:42
[2019-05-26 12:47] LABS: BILIRUBIN,URINE NEGATIVE (NEG); CLARITY,URINE CLEAR; COLOR,URINE YELLOW; NITRITE,URINE NEGATIVE (NEG); PH,URINE 5.5; PROTEIN,URINE NEGATIVE (NEG-TRACE); UROBILINOGEN,URINE 0.2 mg/dL (0.2 mg/dL)
[2019-05-26] MEDS ORDERED: IV NORMAL SALINE 500ML BAG 500 ML IV ONE (13:00)
[2019-05-26 13:01] LABS: SQUAMOUS EPITHELIAL CELL,UR FEW /LPF
[2019-05-26 13:02] LABS: BACTERIA,URINE 0 /HPF (0-FEW); RBC,URINE 0 /HPF (0-2); WBC,URINE 20-40 /HPF (0-4)
[2019-05-26 13:40] LABS: BASO # 0.1 x10^3/uL (0.0-0.2); BASO % 1 % (0-3); EOS # 0.4 x10^3/uL (0.0-0.7); EOS % 4 % (0-3); HEMATOCRIT 39.2 % (36.0-47.0); HEMOGLOBIN 13.2 g/dL (12.0-15.5); LYMPH # 2.9 x10^3/uL (1.0-4.8); LYMPH % 26 % (24-48); MEAN CORPUSCULAR HEMOGLOBIN 30 pg (25-35); MEAN CORPUSCULAR HGB CONC 34 g/dL (31-37); MEAN CORPUSCULAR VOLUME 89 fL (79-100); MONO # 0.6 x10^3/uL (0.0-1.1); MONO % 5 % (0-9); NEUT # 7.3 x10^3/uL (1.8-7.7); NEUT % 65 % (31-73); PLATELET COUNT 213 x10^3/uL (140-400); WHITE BLOOD COUNT 11.4 x10^3/uL (4.0-11.0)
[2019-05-26 13:46] LABS: CALCIUM 8.8 mg/dL (8.5-10.1); CREATININE 0.8 mg/dL (0.6-1.0); GFR 71.8; POTASSIUM 3.9 mmol/L (3.5-5.1)
[2019-05-26 13:52] LABS: ALBUMIN 3.2 g/dL (3.4-5.0); ALBUMIN/GLOBULIN RATIO 0.9 (1.0-1.7); TOTAL BILIRUBIN 0.7 mg/dL (0.2-1.0); TOTAL PROTEIN 6.7 g/dL (6.4-8.2)
[2019-05-26] MEDS ORDERED: IOHEXOL 300 MG/ML 100ML VIAL. IV ONE (14:00)
[2019-05-26] MEDS ORDERED: CONTRAST GIVEN. MC PRN (14:00)
[2019-05-26] MEDS ORDERED: cefTRIAXone IV Push 1 GM VIAL. IVP STA (14:15)
[2019-05-26] MEDS ORDERED: CEPH-264 PO (14:23)
[2019-05-26] MEDS ORDERED: METR500T PO ×2 (14:23→14:55)
--- NOTE | 2019-05-26 14:43 | RAD ---
Axial CT of the abdomen and pelvis were obtained after the administration of 70 cc Isovue 370. Oral contrast was also administered. Coronal and sagittal reformats are also available. Exposure: One or more of the following individualized dose reduction techniques were utilized for this examination: 1. Automated exposure control 2. Adjustment of the mA and/or kV according to patient size 3. Use of iterative reconstruction technique Indication: Abdominal pain. Comparison: 03/26/2019. Findings: Lung bases are clear. The heart is unenlarged. The apex of the dome of diaphragm is not identified. Patient status post cholecystectomy. The visualized liver parenchyma, spleen, adrenals kidneys and pancreas are unremarkable. The stomach, small and large bowel are nondistended. No evidence pathologic wall thickening. Appendix is visualized and is unremarkable in appearance. There is approximately 1.4 cm of fluid within the endometrial canal. The appendix is visualized and is unremarkable in appearance. There is a focal area of inflammation along the sigmoid colon seen best on axial series image 64. Bladder is distended. Bony structures are otherwise unremarkable. Abdominal aorta is nonaneurysmal. Portal, superior mesenteric and splenic veins are unremarkable. IMPRESSION: 1. Small amount of fluid in the endometrial canal. Given the patient's age this is not within normal limits. Consider transabdominal and transvaginal ultrasound for further evaluation. 2. Small focal area of inflammation along the sigmoid colon may represent small area of diverticulitis or mesenteric infarct. Correlate with location and severity of pain. Electronically signed by: Vince Glass MD (05/26/2019 2:41 PM) [id number]
[2019-05-26] MEDS ORDERED: CIPR500T94 PO (14:58)
--- NOTE | 2019-05-26 15:35 | RAD ---
PELVIS W/TV History: Fluid within the endometrial canal on CT. Comparison: CT May 26, 2019. Technique: Grayscale and color Doppler imaging of the pelvis was performed using transabdominal and transvaginal technique. Findings: The uterus measures 4.9 x 3.9 x 2.9 cm in length. Fluid within the endometrial canal measures up to 0.9 cm. Bilateral ovaries not identified due to overlying bowel gas and positioning. IMPRESSION: 1. Nonspecific fluid within the endometrial canal. Recommend further clinical evaluation. 2. Bilateral ovaries not identified. Electronically signed by: Bacilio Barnhart DO (05/26/2019 3:32 PM) [id number]
[2019-05-26 15:51] VITALS: BP 147/63
[2019-05-27 19:09] LABS: GC PROBE Negative (Negative)
== END 2019-05-26 16:18 | disposition home or self-care (01) ==
LOC: ER 10:19
DX: N76.0 Acute vaginitis (principal); B96.89 Other specified bacterial agents as the cause of diseases classified elsewhere; N39.0 Urinary tract infection, site not specified; K57.92 Diverticulitis of intestine, part unspecified, without perforation or abscess without bleeding; K21.9 Gastro-esophageal reflux disease without esophagitis; E03.9 Hypothyroidism, unspecified; F03.90 Unspecified dementia, unspecified severity, without behavioral disturbance, psychotic disturbance, mood disturbance, and anxiety; Z90.49 Acquired absence of other specified parts of digestive tract; Z88.8 Allergy status to other drugs, medicaments and biological substances
CPT/HCPCS: 36415; 74177; 76830; 76856; 80053; 81001; 83690; 85025; 87086; 87491; 87591; 96374; 99285; J0696; J7040; Q0111; Q9967

== ENCOUNTER 2019-05-30 17:33 | Emergency (ER) | payer OTHER ==
[~2019-05-30] VITALS: Ht 167.6 cm; Wt 74.8 kg
[~2019-05-30 17:33] MED LIST changes: +CEPH-264 PO; +CIPR500T94 PO; +METR500T PO
[2019-05-30] MEDS ORDERED: BISACODYL 5 MG TABLET.DR. PO STA (18:37)
[2019-05-30] MEDS ORDERED: MAGNESIUM CITRATE 296 ML SOLUTION. PO ONE (19:00)
[2019-05-30] MEDS ORDERED: ONDANSETRON ODT 4 MG TAB.RAPDIS. PO ONE (19:00)
--- NOTE | 2019-05-30 19:22 | PHYS DOC ---
Past Medical History Past Medical History: Constipation, Dementia, GERD, Hypothyroid, Other Additional Past Medical Histor: prediabetes,STOMACH PROBLEMS Past Surgical History: Cholecystectomy Alcohol Use: None Drug Use: None Adult General Chief Complaint Chief Complaint: CONTISPATION [facility] HPI Patient is a 64 year old male with history of constipation, hypothyroidism, dementia, who presents to the ED today complaining of constipation for 3 days. Patient is also complaining of nausea that began today, denies any vomiting. Patient is in the ED with the son who is interpreting for [employer]. Patient states she was discharged from the ED a couple days ago with Flagyl Cipro and cephalexin for infection in her vagina. Patient denies any chest pain or shortness of breath. She is complaining of chronic upper back soreness. Review of Systems Review of Systems Constitutional: Denies fever or chills [] Eyes: Denies change in visual acuity, redness, or eye pain [] HENT: Denies nasal congestion or sore throat [] Respiratory: Denies cough or shortness of breath [] Cardiovascular: No additional information not addressed in HPI [] GI: Reports constipation. Reports nausea. Denies vomiting, bloody stools or diarrhea [] : Denies dysuria or hematuria [] Musculoskeletal: Denies back pain or joint pain [] Integument: Denies rash or skin lesions [] Neurologic: Denies headache, focal weakness or sensory changes [] All other systems were reviewed and found to be within normal limits, except as documented in this note. Current Medications Current Medications Current Medications Medications (Trade) Dose Ordered Sig/Blanquita Start Time Stop Time Status Last Admin Dose Admin Bisacodyl (Dulcolax Tab) 10 mg 1X STAT 05/30/19 18:37 05/30/19 18:41 DC 05/30/19 18:50 10 MG Magnesium Citrate (Citroma) 296 ml 1X ONCE 05/30/19 19:00 05/30/19 19:01 DC 05/30/19 18:51 296 ML Ondansetron HCl (Zofran Odt) 4 mg 1X ONCE 05/30/19 19:00 05/30/19 19:01 DC 05/30/19 18:50 4 MG Allergies Allergies Allergies Coded Allergies Type Severity Reaction Last Updated Verified No Known Medication Allergies Allergy Unknown 05/26/19 Yes omeprazole Adverse Reaction Intermediate vomiting 7/26/18 Yes Physical Exam Physical Exam Constitutional: Well developed, well nourished, no acute distress, non-toxic appearance. [] HENT: Normocephalic, atraumatic, bilateral external ears normal, oropharynx moist, no oral exudates, nose normal. [] Eyes: PERRLA, EOMI, conjunctiva normal, no discharge. [] Neck: Normal range of motion, no tenderness, supple, no stridor. [] Cardiovascular:Heart rate regular rhythm, no murmur [] Lungs & Thorax: Bilateral breath sounds clear to auscultation [] Abdomen: Bowel sounds normal, soft, no tenderness, no masses, no pulsatile masses. [] Rectal exam was done-no palpable mass is stool noted on the lower rectum region. Skin: Warm, dry, no erythema, no rash. [] Back: No tenderness, no CVA tenderness. [] Extremities: No tenderness, no cyanosis, no clubbing, ROM intact, no edema. [] Neurologic: Alert and oriented X 3, normal motor function, normal sensory function, no focal deficits noted. [] Psychologic: Affect normal, judgement normal, mood normal. [] Current Patient Data Vital Signs Vital Signs Date Time Temp Pulse Resp B/P (MAP) Pulse Ox O2 Delivery O2 Flow Rate FiO2 05/30/19 19:13 105 18 140/74 (96) 99 Room Air 05/30/19 18:10 97.6 97.6 EKG EKG [] Radiology/Procedures Radiology/Procedures []PROCEDURE: ABDOMEN SUPINE & UPRIGHT Indication: Constipation. TECHNIQUE: 2 views of the abdomen and pelvis COMPARISON: None FINDINGS: Heart is normal in size. Visualized lungs are clear. Status post cholecystectomy. Distended small bowel loops are seen in the left lower quadrant. No calcific densities projecting over the kidneys to suggest apparent renal stones. Moderate distal colonic stool burden. Visualized bones are within normal limits. IMPRESSION: Nonspecific bowel gas pattern. Few distended but nondilated small bowel loops in the left lower quadrant. Moderate distal colonic stool burden. Electronically signed by: Tra Hadley DO (05/30/2019 7:37 PM) [facility] DICTATED and SIGNED BY: TRA HADLEY DO DATE: 05/30/191936 Course & Med Decision Making Course & Med Decision Making Pertinent Labs and Imaging studies reviewed. (See chart for details) This is a 64-year-old female patient presenting to the ED today complaining of obstipation for 3 days. Abdomen and spine x-rays noted for moderate constipation. Medical molasses enema was performed and patient was also given mag citrate. Patient had a bowel movement in the ED and feels better. Discharged to home with prescription for MiraLAX, mag citrate and instructed to push fluids, increase dietary fiber intake. Follow-up with PCP in the course of next week. Dragon Disclaimer Dragon Disclaimer This electronic medical record was generated, in whole or in part, using a voice recognition dictation system. Departure Departure Impression: Primary Impression: Constipation Disposition: HOME, SELF-CARE Condition: STABLE Referrals: UNKNOWN PCP NAME (PCP) LYNSEY QUIROZ MD Follow-up with your doctor or the provided doctor in one week Patient Instructions: Constipation, Adult, [id number] Additional Instructions: You were evaluated in the emergency room for constipation, we highly encouraged you increase your dietary fiber intake. Increase your water intake as well. Take MiraLAX every day, this medicine will help decrease your episodes of consti pation. Take magnesium citrate anytime you are constipated. Scripts Magnesium Citrate (MAGNESIUM CITRATE) 296 Ml Solution 296 ML PO ONCE, #296 ML Prov: TRENTON WALTERS APRN 05/30/19 Polyethylene Glycol 3350 (MIRALAX) 17 Gm Powd.pack 1 PACKET PO DAILY, #30 PACKET 3 Refills Prov: TRENTON WALTERS APRN 05/30/19 Problem Qualifiers Primary Impression: Constipation Constipation type: unspecified constipation type Qualified Codes: K59.00 - Constipation, unspecified TRENTON WALTERS APRN May 30, 2019 19:22
--- NOTE | 2019-05-30 19:40 | RAD ---
Indication: Constipation. TECHNIQUE: 2 views of the abdomen and pelvis COMPARISON: None FINDINGS: Heart is normal in size. Visualized lungs are clear. Status post cholecystectomy. Distended small bowel loops are seen in the left lower quadrant. No calcific densities projecting over the kidneys to suggest apparent renal stones. Moderate distal colonic stool burden. Visualized bones are within normal limits. IMPRESSION: Nonspecific bowel gas pattern. Few distended but nondilated small bowel loops in the left lower quadrant. Moderate distal colonic stool burden. Electronically signed by: Tra Paul DO (05/30/2019 7:37 PM) [facility]
[2019-05-30] MEDS ORDERED: POLY17PO29 PO (21:01)
[2019-05-30] MEDS ORDERED: MAGN296S9 PO (21:01)
[2019-05-30 21:05] VITALS: BP 129/76
[2019-05-30] MEDS ORDERED: LIDO:MAALOX 1:1 20 ML SINGLE DOSE. SWSW ONE (21:30)
== END 2019-05-30 21:14 | disposition home or self-care (01) ==
LOC: ER 17:33
DX: K59.00 Constipation, unspecified (principal); M54.6 Pain in thoracic spine; K21.9 Gastro-esophageal reflux disease without esophagitis; E03.9 Hypothyroidism, unspecified; F03.90 Unspecified dementia, unspecified severity, without behavioral disturbance, psychotic disturbance, mood disturbance, and anxiety; Z90.49 Acquired absence of other specified parts of digestive tract; Z88.8 Allergy status to other drugs, medicaments and biological substances
CPT/HCPCS: 74021; 99284; Q0162

== ENCOUNTER 2020-01-09 10:48 | Emergency (ER) | payer OTHER ==
[~2020-01-09] VITALS: Ht 152.4 cm; Wt 70.5 kg
[~2020-01-09 10:48] MED LIST changes: -CETI10TA22 PO; +CETI10TA24 PO; +MAGN296S68 PO
[2020-01-09 11:12] LABS: BILIRUBIN,URINE NEGATIVE (NEG); CLARITY,URINE CLEAR; COLOR,URINE YELLOW; NITRITE,URINE NEGATIVE (NEG); PH,URINE 6.5 (<5.0-8.0); PROTEIN,URINE NEGATIVE (NEG-TRACE); UROBILINOGEN,URINE 0.2 mg/dL (0.2 mg/dL)
[2020-01-09 11:45] LABS: BACTERIA,URINE FEW /HPF (0-FEW); RBC,URINE 0 /HPF (0-2)
[2020-01-09 11:46] LABS: SQUAMOUS EPITHELIAL CELL,UR FEW /LPF
[2020-01-09 11:51] LABS: BASO % 1 % (0-3); EOS # 0.2 x10^3/uL (0.0-0.7); EOS % 4 % (0-3); HEMATOCRIT 43.4 % (36.0-47.0); HEMOGLOBIN 14.4 g/dL (12.0-15.5); LYMPH # 1.5 x10^3/uL (1.0-4.8); LYMPH % 25 % (24-48); MEAN CORPUSCULAR HEMOGLOBIN 29 pg (25-35); MEAN CORPUSCULAR HGB CONC 33 g/dL (31-37); MEAN CORPUSCULAR VOLUME 88 fL (79-100); MONO # 0.4 x10^3/uL (0.0-1.1); MONO % 7 % (0-9); NEUT # 4.1 x10^3/uL (1.8-7.7); NEUT % 65 % (31-73); PLATELET COUNT 234 x10^3/uL (140-400); RED BLOOD COUNT 4.94 x10^6/uL (3.50-5.40); RED CELL DISTRIBUTION WIDTH 13.6 % (11.5-14.5); WHITE BLOOD COUNT 6.3 x10^3/uL (4.0-11.0)
[2020-01-09 12:00] LABS: CALCIUM 9.3 mg/dL (8.5-10.1); CREATININE 0.9 mg/dL (0.6-1.0); GFR 62.6; POTASSIUM 3.6 mmol/L (3.5-5.1)
[2020-01-09 12:05] LABS: ALBUMIN 3.9 g/dL (3.4-5.0); ALBUMIN/GLOBULIN RATIO 1.1 (1.0-1.7); TOTAL BILIRUBIN 0.9 mg/dL (0.2-1.0); TOTAL PROTEIN 7.4 g/dL (6.4-8.2)
--- NOTE | 2020-01-09 12:15 | RAD ---
EXAM: ACUTE ABDOMEN SERIES 01/09/2020 11:37 AM CLINICAL INDICATION:Chest pain COMPARISON:Abdominal radiograph 05/30/2019 TECHNIQUE:AP upright view of the chest and AP upright supine views of abdomen. FINDINGS:The heart and mediastinum are normal. Lungs are well-expanded and clear. No pleural effusion or pneumothorax. Bowel gas pattern is nonspecific and nonobstructive. No abnormal calcifications. Normal volume of stool. Cholecystectomy clips are noted. Mild degenerative disc disease of the lumbar spine and mild degenerative joint disease of the hips. IMPRESSION:No acute intra-abdominal or cardiopulmonary abnormality. Electronically signed by: Mary Cornell MD (01/09/2020 12:12 PM) [id number]
--- NOTE | 2020-01-09 12:41 | EKG ---
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
[2020-01-09] MEDS ORDERED: MAGN296S68 PO (12:43)
[2020-01-09] MEDS ORDERED: POLY119P4 PO (12:43)
[2020-01-09 13:15] VITALS: BP 157/78
--- NOTE | 2020-01-09 17:18 | PHYS DOC ---
Past Medical History Past Medical History: Constipation, Dementia, GERD, Hypothyroid, Other Additional Past Medical Histor: prediabetes,STOMACH PROBLEMS Past Surgical History: Cholecystectomy Smoking Status: Never Smoker Alcohol Use: None Drug Use: None Adult General Chief Complaint Chief Complaint: ABDOMINAL PAIN [facility] HPI Patient is a 64 year old and female with history of chronic constipation abdominal pain who presents with intermittent constipation with diarrhea for the past several weeks. Patient has been taking dicyclomine with limited improvement. Currently denies abdominal pain. No recent antibiotics. No fevers chills, sweats. No flank pain, bloody stools tarry stools. No urinary frequency urgency or dysuria.. Patient states she has been unable to see her PCP in the office due to COVID. Patient is from [facility] and is [id number]. A professional scallop cutter was used to obtain history. [] Review of Systems Review of Systems Review of systems as per HPI. All other review of symptoms are negative. All other systems were reviewed and found to be within normal limits, except as documented in this note. Allergies Allergies Allergies Coded Allergies Type Severity Reaction Last Updated Verified No Known Medication Allergies Allergy Unknown 05/26/19 Yes omeprazole Adverse Reaction Intermediate vomiting 03/18/18 Yes Physical Exam Physical Exam Constitutional: Well developed, well nourished, no acute distress, non-toxic appearance. [] HENT: Normocephalic, atraumatic, bilateral external ears normal, oropharynx moist, no oral exudates, nose normal. [] Eyes: PERRLA, EOMI, conjunctiva normal, no discharge. [] Neck: Normal range of motion, no tenderness, supple, no stridor. [] Cardiovascular:Heart rate regular rhythm, no murmur [] Lungs & Thorax: Bilateral breath sounds clear to auscultation [] Abdomen: Bowel sounds normal, mild distention, increased bowel sounds. Soft, no tenderness. [] Skin: Warm, dry, no erythema, no rash. [] Back: No tenderness. [] Extremities: No tenderness, no cyanosis, no clubbing, ROM intact, no edema. [] Neurologic: Alert and oriented X 3, normal motor function, normal sensory function, no focal deficits noted. [] Psychologic: Affect normal, judgement normal, mood normal. [] Current Patient Data Vital Signs Vital Signs Date Time Temp Pulse Resp B/P (MAP) Pulse Ox O2 Delivery O2 Flow Rate FiO2 01/09/20 13:15 90 20 157/78 (104) 97 Room Air 01/09/20 11:15 98.6 98.6 Lab Values Laboratory Tests Test 01/09/20 11:00 01/09/20 11:38 Urine Collection Type Unknown Urine Color Yellow Urine Clarity Clear Urine pH 6.5 (<5.0-8.0) Urine Specific [place] <=1.005 (1.000-1.030) Urine Protein Negative mg/dL (NEG-TRACE) Urine Glucose (UA) Negative mg/dL (NEG) Urine Ketones (Stick) Negative mg/dL (NEG) Urine Blood Negative (NEG) Urine Nitrite Negative (NEG) Urine Bilirubin Negative (NEG) Urine Urobilinogen Dipstick 0.2 mg/dL (0.2 mg/dL) Urine Leukocyte Esterase Small (NEG) Urine RBC 0 /HPF (0-2) Urine WBC 5-10 /HPF (0-4) Urine Squamous Epithelial Cells Few /LPF Urine Bacteria Few /HPF (0-FEW) White Blood Count 6.3 x10^3/uL (4.0-11.0) Red Blood Count 4.94 x10^6/uL (3.50-5.40) Hemoglobin 14.4 g/dL (12.0-15.5) Hematocrit 43.4 % (36.0-47.0) Mean Corpuscular Volume 88 fL (79-100) Mean Corpuscular Hemoglobin 29 pg (25-35) Mean Corpuscular Hemoglobin Concent 33 g/dL (31-37) Red Cell Distribution Width 13.6 % (11.5-14.5) Platelet Count 234 x10^3/uL (140-400) Neutrophils (%) (Auto) 65 % (31-73) Lymphocytes (%) (Auto) 25 % (24-48) Monocytes (%) (Auto) 7 % (0-9) Eosinophils (%) (Auto) 4 % (0-3) H Basophils (%) (Auto) 1 % (0-3) Neutrophils # (Auto) 4.1 x10^3/uL (1.8-7.7) Lymphocytes # (Auto) 1.5 x10^3/uL (1.0-4.8) Monocytes # (Auto) 0.4 x10^3/uL (0.0-1.1) Eosinophils # (Auto) 0.2 x10^3/uL (0.0-0.7) Basophils # (Auto) 0.0 x10^3/uL (0.0-0.2) Sodium Level 144 mmol/L (136-145) Potassium Level 3.6 mmol/L (3.5-5.1) Chloride Level 105 mmol/L (98-107) Carbon Dioxide Level 30 mmol/L (21-32) Anion Gap 9 (6-14) Blood Urea Nitrogen 3 mg/dL (7-20) L Creatinine 0.9 mg/dL (0.6-1.0) Estimated GFR (Cockcroft-Gault) 62.6 BUN/Creatinine Ratio 3 (6-20) L Glucose Level 96 mg/dL (70-99) Calcium Level 9.3 mg/dL (8.5-10.1) Total Bilirubin 0.9 mg/dL (0.2-1.0) Aspartate Amino Transferase (AST) 25 U/L (15-37) Alanine Aminotransferase (ALT) 33 U/L (14-59) Alkaline Phosphatase 117 U/L (46-116) H Troponin I Quantitative < 0.017 ng/mL (0.000-0.055) Total Protein 7.4 g/dL (6.4-8.2) Albumin 3.9 g/dL (3.4-5.0) Albumin/Globulin Ratio 1.1 (1.0-1.7) Lipase 64 U/L (73-393) L Laboratory Tests 01/09/20 11:38 Laboratory Tests 01/09/20 11:38 EKG EKG [] Radiology/Procedures Radiology/Procedures [Acute abdominal series: No air-fluid levels] Course & Med Decision Making Course & Med Decision Making Pertinent Labs and Imaging studies reviewed. (See chart for details) [Chronic constipation. Will treat supportively with PCP follow-up. Return precautions reviewed.] Dragon Disclaimer Dragon Disclaimer This electronic medical record was generated, in whole or in part, using a voice recognition dictation system. Departure Departure Impression: Primary Impression: Constipation Additional Impression: Abdominal pain Disposition: HOME, SELF-CARE Condition: STABLE Patient Instructions: Constipation, Adult, Kehz-hl-[id number] Additional Instructions: You were evaluated in the emergency room for constipation, we highly encouraged you increase your dietary fiber intake. Increase your water intake as well. Take MiraLAX every day, this medicine will help decrease your episodes of constipation. Take magnesium citrate anytime you are constipated. Scripts Magnesium Citrate (MAGNESIUM CITRATE) 296 Ml Solution 296 ML PO BID PRN for CONSTIPATION, #296 ML Prov: PHANI OWENS DO 01/09/20 Polyethylene Glycol 3350 (MIRALAX) 119 Gm Powder 17 GM PO DAILY for constipation, #527 GM 0 Refills dissolve in water Prov: PHANI OWENS DO 01/09/20 Problem Qualifiers PHANI OWENS DO January 09, 2020 17:18
== END 2020-01-09 13:23 | disposition home or self-care (01) ==
LOC: ER 10:48
DX: K59.00 Constipation, unspecified (principal); R10.9 Unspecified abdominal pain; K21.9 Gastro-esophageal reflux disease without esophagitis; E03.9 Hypothyroidism, unspecified; Z90.49 Acquired absence of other specified parts of digestive tract; Z88.8 Allergy status to other drugs, medicaments and biological substances
CPT/HCPCS: 36415; 74022; 80053; 81001; 83690; 84484; 85025; 87086; 93005; 99285-25

== ENCOUNTER 2020-02-27 09:25 | Emergency (ER) | payer OTHER ==
[~2020-02-27] VITALS: Ht 162.6 cm; Wt 75.0 kg
[~2020-02-27 09:25] MED LIST changes: +POLY119P4 PO
[2020-02-27] MEDS ORDERED: ONDANSETRON PF 4 MG/2 ML VIAL. IVP ONE (11:30)
[2020-02-27] MEDS ORDERED: IV NORMAL SALINE 1000ML BAG 1,000 ML IV SCH (11:30)
[2020-02-27] MEDS ORDERED: fentaNYL PF VIAL 100 MCG/2 ML VIAL IVP ONE (11:30)
--- NOTE | 2020-02-27 11:31 | PHYS DOC ---
Past Medical History Past Medical History: Constipation, Dementia, GERD, Hypothyroid, Other Additional Past Medical Histor: prediabetes,STOMACH PROBLEMS Past Surgical History: Cholecystectomy Smoking Status: Never Smoker Alcohol Use: None Drug Use: None General Adult EDM: Chief Complaint: ABDOMINAL PAIN HPI: HPI: Patient is a 64 year old female who presents with states for the last 2 months she is had this constipation problem with generalized abdominal pain abdominal cramping. She states that after she eats she feels really full or like the food is sitting there and causes her to have shortness of breath or not be able to take a deep breath. She states that she goes to a GI doctor of which she cannot remember the name and they gave her a amoxicillin antibiotic to take for a lower "colon problem". She has been done without antibiotic for the last 4 days per the family member. Patient is rating her pain a 10 out of 10. She is not been vomiting but she does have some nausea. She will have small hard stools. The doctor had put her on senna and dicyclomine. She last took the senna last night. Patient has a history of constipation, dementia, prediabetes, GERD, hypothyroidism, cholecystectomy. She denies the pain radiating anywhere but states it feels like it is more on the right side. Review of Systems: Review of Systems: Constitutional: Denies fever or chills. [] Eyes: Denies change in visual acuity. [] HENT: Denies nasal congestion or sore throat. [] Respiratory: Denies cough or shortness of breath. [] Cardiovascular: Denies chest pain or edema. [] GI: +abdominal pain, +nausea, +constipation, denies vomiting, bloody stools or diarrhea. [] : Denies dysuria. [] Musculoskeletal: Denies back pain or joint pain. [] Integument: Denies rash. [] Neurologic: Denies headache, focal weakness or sensory changes. [] Endocrine: Denies polyuria or polydipsia. [] Lymphatic: Denies swollen glands. [] Psychiatric: Denies depression or anxiety. [] Heart Score: Risk Factors: Risk Factors: DM, Current or recent (<one month) smoker, HTN, HLP, family history of CAD, obesity. Risk Scores: Score 0 - 3: 2.5% MACE over next 6 weeks - Discharge Home Score 4 - 6: 20.3% MACE over next 6 weeks - Admit for Clinical Observation Score 7 - 10: 72.7% MACE over next 6 weeks - Early Invasive Strategies Allergies: Allergies: Allergies Coded Allergies Type Severity Reaction Last Updated Verified No Known Medication Allergies Allergy Unknown 05/26/19 Yes omeprazole Adverse Reaction Intermediate vomiting 03/18/18 Yes Physical Exam: PE: Constitutional: Well developed, well nourished, no acute distress, non-toxic appearance. [] HENT: Normocephalic, atraumatic, bilateral external ears normal, oropharynx moist, no oral exudates, nose normal. [] Eyes: PERRLA, EOMI, conjunctiva normal, no discharge. [] Neck: Normal range of motion, no tenderness, supple, no stridor. [] Cardiovascular:Heart rate regular rhythm, no murmur [] Lungs & Thorax: Bilateral breath sounds clear to auscultation [] Abdomen: Bowel sounds normal, soft, generalized tenderness, no masses, no pulsatile masses. [] Skin: Warm, dry, no erythema, no rash. [] Back: No tenderness, no CVA tenderness. [] Extremities: No tenderness, no cyanosis, no clubbing, ROM intact, no edema. [] Neurologic: Alert and oriented X 3, normal motor function, normal sensory function, no focal deficits noted. [] Psychologic: Affect normal, judgement normal, mood normal. [] EKG: EK and read by Dr Mckinley as sinus rhythm and no STEMI[] Radiology/Procedures: Radiology/Procedures: [] Impression: [facility] [address] [place], [place] [id number] IMAGING REPORT Signed PATIENT: ASHLEY DUGGAN ACCOUNT: [id number] : 1955 LOCATION: ER AGE: 64 SEX: F EXAM STATUS: REG ER ORD. PHYSICIAN: AMIRAH SEARS APRN REASON: constipation, abd pain PROCEDURE: CT ABD PELV W/ IV CONTRST ONLY CT scan abdomen and pelvis with contrast 02/27/2020 CLINICAL HISTORY: Constipation. Abdominal pain for 3 to 4 months. TECHNIQUE: After the intravenous administration of 60 cc of Omnipaque 300, contiguous, 5 mm axial sections were obtained through the abdomen and pelvis. One or more of the following individualized dose reduction techniques were utilized for this study: 1. Automated exposure control. 2. Adjustment of the mA and/or kV according to patient size. 3. Use of iterative reconstruction technique. FINDINGS: Comparison study is dated 05/26/2019. Images through the lung bases demonstrate mild cardiomegaly. Dependent segmental atelectasis is seen involving both lower lobes, left greater than right. The liver, spleen, pancreas, adrenal glands and kidneys are within normal limits. Atherosclerotic calcification abdominal aorta is seen. The abdominal aorta tapers normally. Surgical clips are seen within the gallbladder fossa consistent with a cholecystectomy. The appendix is well-visualized and is within normal limits. Colon is largely contracted. Scattered diverticula are seen involving the colon. No inflammatory changes are seen adjacent fat. Minimal S-shaped curvature of the thoracolumbar spine is seen. Degenerative changes are seen involving the lower thoracic and throughout the lumbar spine along with both hips. IMPRESSION: No acute abnormality is seen. Electronically signed by: Martir Howard MD (02/27/2020 12:55 PM) [id number] DICTATED and SIGNED BY: MARTIR HOWARD MD DATE: 02/27/20 1258 [facility] [address] [place], [place] [id number] IMAGING REPORT Signed PATIENT: ASHLEY DUGGAN ACCOUNT: [id number] : 1955 LOCATION: ER AGE: 64 SEX: F EXAM STATUS: REG ER ORD. PHYSICIAN: AMIRAH SEARS APRN REASON: short of breath, abdominal pain, nausea PROCEDURE: PORTABLE CHEST 1V PORTABLE CHEST 1V History: Reason: short of breath, abdominal pain, nausea / Spl. Instructions: / History: Comparison: May 19, 2019 Findings: Patchy bibasilar opacities. No pleural effusion. No pneumothorax. Normal heart size. Impression: 1. Patchy bibasilar opacities, likely atelectasis. Electronically signed by: Bacilio Barnhart DO (02/27/2020 12:30 PM) [id number] DICTATED and SIGNED BY: BACILIO BARNHART DO DATE: 02/27/20 1230 Course & Med Decision Making: Course & Med Decision Making Pertinent Labs and Imaging studies reviewed. (See chart for details) Patient denies vomiting, diarrhea, headache, dizziness, syncope, chest pain, shortness of air, focal weakness, fever, vision changes, dysuria. Abdomen is soft but generalized tenderness. Alert and oriented. Speaks in full clear sentences. Patient does not speak Green[place]ic and her daughter is in the room comforting. No extremity edema. Afebrile. Ambulatory with a steady gait. Skin pink warm and dry. Daughter states that the patient does have follow-up with the GI doctor but she does not remember when. Daughter states she will try to tell me what the GI doctors name when she remembers. [] Dragon Disclaimer: Dragon Disclaimer: This electronic medical record was generated, in whole or in part, using a voice recognition dictation system. Departure Departure Impression: Primary Impression: Abdominal pain Qualified Codes: R10.84 - Generalized abdominal pain Additional Impression: Constipation Qualified Codes: K59.00 - Constipation, unspecified Disposition: HOME, SELF-CARE Condition: STABLE Referrals: UNKNOWN PCP NAME (PCP) LYNSEY QUIROZ MD Patient Instructions: Constipation, Adult Additional Instructions: Follow up with GI doctor as soon as possible. Continue taking Senna every day. Drink plenty of fluids. Justicifation of Admission Dx: Justifications for Admission: Justification of Admission Dx: N/A AMIRAH SEARS APRN Feb 27, 2020 11:31
[2020-02-27 11:36] LABS: BILIRUBIN,URINE NEGATIVE (NEG); CLARITY,URINE CLEAR; COLOR,URINE YELLOW; NITRITE,URINE NEGATIVE (NEG); PROTEIN,URINE NEGATIVE (NEG-TRACE); UROBILINOGEN,URINE 0.2 mg/dL (0.2 mg/dL)
[2020-02-27 11:42] LABS: BARBITURATES NEG (NEG); BENZODIAZEPINES NEG (NEG); CANNABINOIDS NEG (NEG); COCAINE NEG (NEG); METHADONE NEG (NEG); OPIATES NEG (NEG); PHENCYCLIDINE NEG (NEG)
[2020-02-27 11:44] LABS: BACTERIA,URINE FEW /HPF (0-FEW); RBC,URINE 0 /HPF (0-2); SQUAMOUS EPITHELIAL CELL,UR FEW /LPF; WBC,URINE OCC /HPF (0-4)
[2020-02-27 11:46] LABS: AMPHETAMINE/METHAMPHETAMINE NEG (NEG)
[2020-02-27 11:55] LABS: BASO % 1 % (0-3); EOS # 0.3 x10^3/uL (0.0-0.7); EOS % 4 % (0-3); HEMATOCRIT 41.8 % (36.0-47.0); LYMPH # 1.7 x10^3/uL (1.0-4.8); LYMPH % 23 % (24-48); MEAN CORPUSCULAR HEMOGLOBIN 30 pg (25-35); MEAN CORPUSCULAR HGB CONC 33 g/dL (31-37); MEAN CORPUSCULAR VOLUME 90 fL (79-100); MONO # 0.4 x10^3/uL (0.0-1.1); MONO % 5 % (0-9); NEUT # 4.9 x10^3/uL (1.8-7.7); NEUT % 68 % (31-73); PLATELET COUNT 194 x10^3/uL (140-400); RED BLOOD COUNT 4.63 x10^6/uL (3.50-5.40); RED CELL DISTRIBUTION WIDTH 15.3 % (11.5-14.5); WHITE BLOOD COUNT 7.3 x10^3/uL (4.0-11.0)
[2020-02-27 12:07] LABS: CALCIUM 9.3 mg/dL (8.5-10.1); GFR 55.5; POTASSIUM 3.8 mmol/L (3.5-5.1)
[2020-02-27 12:08] LABS: PROTHROMBIN TIME PATIENT 13.4 SEC (11.7-14.0)
[2020-02-27 12:13] LABS: ALBUMIN 3.8 g/dL (3.4-5.0); TOTAL BILIRUBIN 1.2 mg/dL (0.2-1.0); TOTAL PROTEIN 7.6 g/dL (6.4-8.2)
[2020-02-27] MEDS ORDERED: IOHEXOL 300 MG/ML 100ML VIAL. IV ONE (12:15)
[2020-02-27] MEDS ORDERED: CONTRAST GIVEN. MC PRN (12:30)
--- NOTE | 2020-02-27 12:33 | RAD ---
PORTABLE CHEST 1V History: Reason: short of breath, abdominal pain, nausea / Spl. Instructions: / History: Comparison: May 19, 2019 Findings: Patchy bibasilar opacities. No pleural effusion. No pneumothorax. Normal heart size. Impression: 1. Patchy bibasilar opacities, likely atelectasis. Electronically signed by: Bacilio Barnhart DO (02/27/2020 12:30 PM) [id number]
--- NOTE | 2020-02-27 12:58 | RAD ---
CT scan abdomen and pelvis with contrast 02/27/2020 CLINICAL HISTORY: Constipation. Abdominal pain for 3 to 4 months. TECHNIQUE: After the intravenous administration of 60 cc of Omnipaque 300, contiguous, 5 mm axial sections were obtained through the abdomen and pelvis. One or more of the following individualized dose reduction techniques were utilized for this study: 1. Automated exposure control. 2. Adjustment of the mA and/or kV according to patient size. 3. Use of iterative reconstruction technique. FINDINGS: Comparison study is dated 05/26/2019. Images through the lung bases demonstrate mild cardiomegaly. Dependent segmental atelectasis is seen involving both lower lobes, left greater than right. The liver, spleen, pancreas, adrenal glands and kidneys are within normal limits. Atherosclerotic calcification abdominal aorta is seen. The abdominal aorta tapers normally. Surgical clips are seen within the gallbladder fossa consistent with a cholecystectomy. The appendix is well-visualized and is within normal limits. Colon is largely contracted. Scattered diverticula are seen involving the colon. No inflammatory changes are seen adjacent fat. Minimal S-shaped curvature of the thoracolumbar spine is seen. Degenerative changes are seen involving the lower thoracic and throughout the lumbar spine along with both hips. IMPRESSION: No acute abnormality is seen. Electronically signed by: Martir Howard MD (02/27/2020 12:55 PM) [id number]
[2020-02-27 13:00] VITALS: BP 137/63
[2020-02-27] MEDS ORDERED: SODIUM PHOSPHATES 19/7GM 133 ML ENEMA. PR ONE (14:00)
--- NOTE | 2020-02-28 07:14 | EKG ---
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
== END 2020-02-27 14:20 | disposition home or self-care (01) ==
LOC: ER 09:25
DX: K59.00 Constipation, unspecified (principal); R10.84 Generalized abdominal pain; R06.02 Shortness of breath; R11.0 Nausea; K21.9 Gastro-esophageal reflux disease without esophagitis; E03.9 Hypothyroidism, unspecified; Z90.49 Acquired absence of other specified parts of digestive tract; Z88.8 Allergy status to other drugs, medicaments and biological substances
CPT/HCPCS: 36415; 71045; 74177; 80053; 80307; 81001; 83690; 84484; 85025; 85610; 93005; 96374; 96375; 99285; J2405; J3010; J7030; Q9967

== ENCOUNTER → 2020-03-15 | Outpatient (CLI) | payer OTHER ==
[2020-02-27 13:00] VITALS: BP 137/63
[~2020-03-15] MED LIST changes: -CETI10TA24 PO; +CETI10TA74 PO; +FAMO20TA5 PO; +HYOS0.1222 PO; +LEVO125T5 PO; +METR-34 PO
== END | disposition home or self-care (01) ==
LOC: LAB 13:57
PROVIDERS: ATTEND Internal Medicine Gastroenterology
DX: Z11.59 Encounter for screening for other viral diseases (principal)
CPT/HCPCS: U0003-CS

== ENCOUNTER → 2020-03-21 | Day surgery (SDC) | payer OTHER ==
[~2020-03-21] MED LIST changes: +IV RINGERS,LACTATED 1000ML 1,000 ML IV ONE; +PROPOFOL 10 MG/ML (20ML) VIAL. IV ONE
[2020-03-21 09:12] VITALS: BP 131/66
== END | disposition home or self-care (01) ==
LOC: ENDOS 07:59
PROVIDERS: ATTEND Internal Medicine Gastroenterology
DX: R10.31 Right lower quadrant pain (principal); R63.4 Abnormal weight loss; K64.0 First degree hemorrhoids; E03.9 Hypothyroidism, unspecified; Z88.8 Allergy status to other drugs, medicaments and biological substances; Z79.899 Other long term (current) drug therapy; Z83.3 Family history of diabetes mellitus
CPT/HCPCS: 45378; J2704